=== PATIENT | female | born 1955 | race Caucasian/White ===

== ENCOUNTER 2025-04-19 12:06 | Inpatient (IN) | payer MEDICARE, OTHER, SELFPAY ==
[2025-04-18] VITALS (12 sets, daily range): BP systolic 135–156; BP diastolic 52–102; BMI 42.9
--- NOTE | 2025-04-18 11:25 | PTCARENOTE ---
Patient has severe pain in the R ankle so SCD not applied. Also large mono to the L ankle so wipe not done. Will notify
[2025-04-18] MEDS: NORMOSOL-R/PLASMALYTE-A 1000 IV (11:36)
--- NOTE | 2025-04-18 11:41 | PTCARENOTE ---
Per Anesthesia no need for SCD due to patients high pain level in ankle.
[2025-04-18] MEDS: TYLENOL 1000 MG PO (11:45)
[2025-04-18] MEDS: CELEBREX 200 MG PO (11:45)
--- NOTE | 2025-04-18 15:22 | W.PN.SURGUPD ---
Surgical Update
Surgical Update
69 yo F s/p L ankle ORIF
-Strictly NWB to both legs due to right 5th metatarsal fracture that is being treated conservatively
-Posterior splint to remain C/D/I
-Will need ancef for 24 hours
-Multi modal analgesia
-PT/OT
-Will need DC to SNF
-Follow up with myself at [facility] in 2 weeks
--- NOTE | 2025-04-18 15:33 | HPS.HSE ---
Addendum entered and electronically signed by Primo Oh MD 04/18/25 16:16:
I saw and examined the patient.
The BEEF LUGGER's note was reviewed and I agree with the note.
Comment:
69-year-old female with past medical history of primary hypertension, anxiety, morbid obesity to excess calories who was seen post surgery after undergoing left ankle open reduction internal fixation surgery. Seen postop. Was complaining of severe
pain and just received fentanyl in the PACU. States pain is improving.
General-no acute distress
HEENT neck is supple, trachea is midline
Respiratory nonlabored respiration, not tachypneic, nasal cannula oxygen noted
Cardiac regular rhythm
Abdomen nondistended obesity
Bilateral lower extremity covered in Binh wrap/cast. Able to move toes.
Neuro awake
Impression
Left ankle fracture status post ORIF
Right fifth metatarsal fracture
Primary hypertension
Anxiety
Vitamin D deficiency
Insomnia
Morbid obesity
Plan
Postop antibiotics requirement per surgery
Pain control multimodal analgesia. Bowel regimen.
Strict nonweightbearing bilateral lower extremity due to fractures per surgery
Continue home medications
Check labs
DVT prophylaxis per surgery recommends Lovenox
I spent a total of 80 minutes with the patient or on the floor. More than 50% of this time involved counseling and coordination of care.
Original Note:
Family Physician
-
Family Physician: JIAN LYN DO
Chief Complaint
-
s/p right ORIF
History of Present Illness
69 year old with PMH for HTN presented to us s/p ORIF of left ankle pain. patient fell and rolled on her left ankle. patient was noted to have right 5th metatarsal base fracture and left fibular fracture. patient underwent ORIF of left ankle. at
present, patient in pain. denied YOUNG,dizzy or syncope.denied fever, cills, chst pain, sb. denied abdominal pain,n,v,d. denied dysuria o ror hematuria.
Medical History
Past Medical History
Past Medical History: Reports Other
Additional Past Medical History:
htn
Past Surgical History: Reports Other
Additional Past Surgical History:
gastric bypass
RIGHT TKA
left TKA
Social History
Tobacco: Non-smoker
Alcohol: None
Drug: None
Family History
Family History: Not pertinent
Allergies / Home Medications
Allergies reflects when Allergies were last updated in [employer].
Home Medications with original date entered in [employer]
Allergy/Medication List:
Allergies
Allergy/AdvReac Type Severity Reaction Status Date / Time
pollen extracts Allergy SEASONAL Verified 04/18/25 11:32
ALLERGY
Home Medications
cetirizine 10 mg tablet 10 mg PO DAILY ALLERGY 01/05/22
sertraline 100 mg tablet 100 mg PO DAILY Depression 01/05/22
zolpidem 12.5 mg tablet,extended release,multiphase (Ambien CR) 10 mg PO HS PRN INSOMNIA 01/05/22
acetaminophen 325 mg tablet 325 - 650 mg PO PRN PRN PAIN 04/15/25
biotin 5,000 mcg chewable tablet 5,000 mcg PO DAILY Supplement 04/15/25
cholecalciferol (vitamin D3) 125 mcg (5,000 unit) tablet (Vitamin D3) 125 mcg PO DAILY Supplement 04/15/25
hydrochlorothiazide 25 mg tablet 25 mg PO DAILY HTN 04/15/25
lorazepam 1 mg tablet 1 mg PO PRN PRN anxiety 04/15/25
oxycodone 5 mg tablet 5 mg PO Q6H PRN pain 04/15/25
Review of Systems
-
Constitutional: Reports No Symptoms
EENT: Reports No Symptoms
Respiratory: Reports No Symptoms
Cardiac: Reports No Symptoms
Abdomen/GI: Reports No Symptoms
: Reports No Symptoms
Musculoskeletal: Reports Other (left ORIF, right LE bruised and swelling)
Skin: Reports No Symptoms
Neurological: Reports No Symptoms
Endocrine: Reports No Symptoms
Hematologic/Lymphatic: Reports No Symptoms
Psych: Reports No Symptoms
Physical Exam
Vital Signs
Vital Signs
Temp Pulse Resp BP Pulse Ox
97.0 F 89 16 156/102 94
04/18/25 11:30 04/18/25 11:30 04/18/25 11:30 04/18/25 11:30 04/18/25 11:30
Physical Exam
General: Well Developed, Well Nourished and No Apparent Distress
HEENT: NormoCephalic, Moist mucous membranes and Atraumatic
Respiratory: Clear
Cardiac: S1/S2 and Regular Rhythm; No Murmur or Rub
GI: Soft, Non Tender, Non Distended and Normal Bowel Sounds; No Organomegaly
Rectal: Deferred by Provider
Musculoskeletal: No Clubbing, No Cyanosis and Other (left LE bruising, edema, left ankle s/p ORIF)
Skin: No Rash
Neuro: Nonfocal/grossly intact
Psych: Calm
Impression/Plan
-
#s/p left ankle ORIF
#right fifth metatarsal fracture -treating conservatively
-PT/OT consulted
-podiatry following pain
-weight bearing as tolerated
-Tylenol prn for pain
-iv Ancef continued as per podiatry
-gabapentin and oxy continued
#essential HTN
-hctz continued
#anxiety
-lorazepam continued
#depression
-sertraline continued
#DVT prophylaxis
-Lovenox
#CODE status
-full code
[2025-04-18] MEDS: SUBLIMAZE 50 MCG IV ×3 (15:52→16:31)
[2025-04-18] MEDS: LOVENOX 40 MG SC (18:52)
[2025-04-18] MEDS: MORPHINE SULFATE 1 MG IV ×2 (18:53→23:08)
[2025-04-18] MEDS: ANCEF 10 IV (21:23)
[2025-04-18] MEDS: NEURONTIN 300 MG PO (21:24)
[2025-04-18] MEDS: AMBIEN 10 MG PO (23:16)
[2025-04-19] VITALS (7 sets, daily range): BP systolic 125–143; BP diastolic 55–72; PULSE 65; O2SAT 98
[2025-04-19] MEDS: TYLENOL 650 MG PO (01:40)
[2025-04-19] MEDS: ANCEF 10 IV ×2 (03:09→12:08)
[2025-04-19] MEDS: ROXICODONE 5 MG PO ×2 (03:12→08:07)
[2025-04-19 06:09] LABS: Hematocrit 37.2 % (37.0-47.0); Hemoglobin 12.5 g/dL (12.0-16.0); Mean Corp Hgb Conc. 33.6 g/dL (33.0-37.0); Mean Corpuscular Volume 97.9 fL (81.0-99.0); Platelet Count 227 10^3/uL (130-400); Red Cell Dist. Width 13.8 % (11.5-14.5)
[2025-04-19 06:38] LABS: Blood Urea Nitrogen 15 mg/dl (7-17); Calcium 9.0 mg/dl (8.4-10.2); Carbon Dioxide 30 mmol/L (22-30); Chloride 99 mmol/L (98-107); Estimated Creatinine Clearance 91 ml/min; Glucose 112 mg/dl (70-99); Potassium 4.5 mmol/L (3.5-5.1); Sodium 135 mmol/L (135-145); eGFR > 60.00
[2025-04-19] MEDS: NEURONTIN 300 MG PO ×3 (08:01→21:15)
[2025-04-19] MEDS: ORETIC 25 MG PO (08:02)
[2025-04-19] MEDS: ZOLOFT 100 MG PO (08:02)
[2025-04-19] MEDS: ROXICODONE 10 MG PO ×3 (10:08→19:40)
--- NOTE | 2025-04-19 10:22 | W.PN.UPDATE ---
Update Note
Progress Note Update
69 yo F s/p L ankle ORIF. Doing well this AM with anticipated postop pain. CFT wnl, sensation intact to pedal distributions, motor function intact to toes, calves soft supple nontender to touch
-Strictly NWB LLE, patient may be PWB to right heel in CAM for transfers only due to right 5th metatarsal fracture that is being treated conservatively
-Posterior splint to remain C/D/I
-continue postop ancef 24hrs from surgery
-Multi modal analgesia
-PT/OT
-Will need DC to SNF
-Follow up with Dr. Madden at [facility] in 2 weeks
--- NOTE | 2025-04-19 11:06 | W.PN.HOSP.TC ---
Today's Communication/Plan
-
Pain control
Bowel regimen
Case management for placement
Start Disposition planning
Assessment / Plan
Assessment / Plan
General-no acute distress
HEENT neck is supple, trachea is midline
Respiratory nonlabored respiration, not tachypneic,
Cardiac regular rhythm
Abdomen nondistended obesity
Bilateral lower extremity covered in Binh wrap/cast. Able to move toes.
Neuro awake
#s/p left ankle ORIF
#right fifth metatarsal fracture -treating conservatively
-PT/OT consulted recs SNF
-podiatry following
- Weightbearing status per surgery and recommending strict nonweightbearing to left lower extremity and partial weightbearing to right heel in CAM for transfers only
-Tylenol prn for pain
-iv Ancef continued as per podiatry
- Gabapentin started for surgery. Tramadol for moderate pain. Oxycodone for severe. Morphine for breakthrough pain only.
#essential HTN
-hctz continued. Blood pressure controlled 130/67.
#anxiety
-lorazepam continued
#depression
-sertraline continued
#Chronic bradycardia
Continue to monitor
#DVT prophylaxis
-Lovenox
#CODE status
-full code
Anticipated Discharge: Within 24 hours
Subjective/Interval History
-
Date of Service: April 19, 2025
state of Left leg pain
Objective Data
-
Labs:
Laboratory Results
04/18/25 04/19/25
17:27 05:17
WBC Cancelled 6.9
Hgb Cancelled 12.5
Hct Cancelled 37.2
Plt Count Cancelled 227
Sodium Cancelled 135
Potassium Cancelled 4.5
Chloride Cancelled 99
Carbon Dioxide Cancelled 30
BUN Cancelled 15
Creatinine Cancelled 0.7
Glucose Cancelled 112 H
Calcium Cancelled 9.0
Total Bilirubin Cancelled
AST Cancelled
ALT Cancelled
Alkaline Phosphatase Cancelled
Vital Signs:
Vital Signs
Temp Pulse Resp BP Pulse Ox
97.8 F 53 16 130/67 98
04/19/25 07:05 04/19/25 08:02 04/19/25 07:05 04/19/25 08:02 04/19/25 10:57
I&O
04/18/25 04/19/25 04/20/25
06:59 06:59 06:59
Intake Total 440 / 440 240 / 240
Output Total 400 / 400
Balance 40 / 40 240 / 240
Data Reviewed
-
Total Time Spent with Patient (in minutes): 55
[2025-04-19] MEDS: MORPHINE SULFATE 1 MG IV (12:08)
--- NOTE | 2025-04-19 13:20 | CM ---
Initial assessment completed with pt at bedside. Pts sister and niece at bedside as well.
Pt is status post L Ankle ORIF completed on 04/18/25.
Pt was switched to Inpt based on NWB and pain management. Goal is for pt to dc to SNF.
At baseline, pt lives with her 2 sisters in a split level home. There are 3ste the home to the living room/kitchen area, and there are an additional 8steps to the pts room and bathroom. Per pt and sister at bedside, pt will have stairglide installed
from main level to her room.
Additional equipment includes a RW, cane, shower chair with additional shower rails, and toilet rails.
Pt has had VN in the past, but does not recall the agency. Pt has never been placed in SNF.
Recommendation is for pt to go to SNF at dc. BELLA spoke with pt and family at bedside regarding Medicare.gov
Initial referrals were sent to [facility], and [facility]. BELLA did encourage to continue search for additional facilities in the event these do not accept.
PCP-Denae Elkins
Pharm; SUSAN Carreoneim
PLAN; SNF
[2025-04-19] MEDS: ATIVAN 1 MG PO (14:47)
[2025-04-19] MEDS: LOVENOX 40 MG SC (17:23)
[2025-04-19] MEDS: SENOKOT-S 1 TABLET PO (19:40)
[2025-04-19] MEDS: AMBIEN 10 MG PO (21:57)
[2025-04-20] MEDS: ROXICODONE 10 MG PO ×4 (03:06→17:58)
[2025-04-20] MEDS: MORPHINE SULFATE 1 MG IV ×2 (04:17→09:51)
[2025-04-20 06:51] LABS: Hematocrit 35.9 % (37.0-47.0); Hemoglobin 11.8 g/dL (12.0-16.0); Mean Corp Hgb Conc. 32.9 g/dL (33.0-37.0); Mean Corpuscular Volume 98.6 fL (81.0-99.0); Nucleated Red Blood Cells % 0 %; Platelet Count 249 10^3/uL (130-400); Red Cell Dist. Width 13.7 % (11.5-14.5)
[2025-04-20 07:17] LABS: Blood Urea Nitrogen 14 mg/dl (7-17); Calcium 8.6 mg/dl (8.4-10.2); Carbon Dioxide 32 mmol/L (22-30); Chloride 100 mmol/L (98-107); Estimated Creatinine Clearance 80 ml/min; Glucose 99 mg/dl (70-99); Potassium 3.8 mmol/L (3.5-5.1); Sodium 138 mmol/L (135-145); eGFR > 60.00
[2025-04-20 07:20] VITALS: BP 154/84
[2025-04-20] MEDS: ZOLOFT 100 MG PO (07:55)
[2025-04-20] MEDS: ORETIC 25 MG PO (07:55)
[2025-04-20] MEDS: NEURONTIN 300 MG PO ×3 (07:55→21:48)
[2025-04-20] MEDS: SENOKOT-S 1 TABLET PO ×2 (07:55→20:27)
--- NOTE | 2025-04-20 07:57 | OR.RPT ---
Operative Report
Operative Report
Operative Report
Patient: Mounika Tapia

Date of Surgery: 04/18/2025
Surgeon: Chilo Madden DPM
Assistants: Chilo Prado DPM
Anesthesia: General with regional block
Preoperative Diagnosis:
Left spiral oblique distal fibular fracture
Deltoid ligament and syndesmotic instability
Postoperative Diagnosis:
Same as preoperative
Procedure:
Open reduction and internal fixation (ORIF) of left distal fibular fracture CPT 04101
Syndesmotic stabilization CPT 26418
Materials: 2-0 vicryl, 3-0 vicryl, 3-0 prolene
Implants:
salgomed anatomical distal fibular plate
Locking and non-locking 3.5mm screws (salgomed)
Two Arthrex TightRopes
Hemostasis: Thigh tourniquet at 325mmHg remained inflated for the entirety of the procedure
Estimated Blood Loss: Minimal (<50 mL)
Complications: None
Indications for Procedure:
The patient is a 69-year-old female who sustained a left ankle injury that happened approximately 1 week ago consistent with a spiral oblique distal fibular fracture. Preoperative imaging demonstrated widening of the medial clear space and evidence
of deltoid and syndesmotic instability. Given the fracture pattern and instability, surgical fixation with plate and syndesmotic stabilization was indicated to restore anatomic alignment and stability, and to decrease the risk of post-traumatic
arthritis. Risks, benefits, and alternatives were discussed, and informed consent was obtained.
Procedure in Detail:
The patient was brought to the operating room, placed supine on the operating table, and a well-padded thigh tourniquet was applied to the left lower extremity. Following induction of general anesthesia, the left lower extremity was prepped and
draped in the usual sterile fashion. A surgical timeout was performed. The extremity was exsanguinated, and the tourniquet was inflated.
A longitudinal incision was made along the posterolateral aspect of the distal fibula centered over the fracture site. Sharp and blunt dissection was carried down through the subcutaneous tissue with care taken to protect the superficial peroneal
nerve branches. The fracture site was identified, and hematoma and interposed tissue were debrided.
The spiral oblique fracture was anatomically reduced using reduction clamps, and provisional fixation was achieved with a pointed reduction clamp and K-wires. An anatomic reduction was confirmed both visually and under fluoroscopy. A 3.5mm
interfragmentary screw was then placed across the fracture utilizing standard AO technique.
Attention was turned to plate fixation to protect the interfragmentary screw. A [facility] anatomic distal fibular plate was selected and positioned along the lateral fibula. The plate was secured proximally and distally using a combination of
non-locking cortical screws and locking screws for optimal fixation and stability. Fluoroscopy confirmed satisfactory alignment of the fibula, hindu of the ankle mortise, and appropriate hardware placement.
Stress fluoroscopy was performed, demonstrating persistent widening of the medial clear space and syndesmotic instability. Given these findings, syndesmotic fixation was performed. Two Arthrex TightRope devices were placed across the distal
tibiofibular joint in standard fashion, one just above the level of the plafond and the second slightly proximal to the first, ensuring divergent orientation. The TightRopes were tensioned sequentially under fluoroscopy until anatomic reduction and
stability of the syndesmosis were restored. Final fluoroscopy demonstrated anatomic reduction of the fibula within the tibial incisura, symmetric medial clear space, stable mortise, and appropriate hardware placement.
The wound was thoroughly irrigated with copious sterile saline. Layered closure was performed with 2-0 Vicryl for deep tissues, 3-0 vicryl for subcutaneous tissue, and 3-0 prolene in a horizontal mattress fashion for skin. A sterile dressing was
applied, followed by a well-padded posterior splint. The tourniquet was deflated, and brisk capillary refill was noted to the toes.
The patient tolerated the procedure and anesthesia well without complications and was transferred to the recovery unit in stable condition. Patient has a concurrent right 5th metatarsal fracture which will be treated conservatively. She will be
non-weightbearing to left lower extremity, and weight-bearing for transfers only to her right lower extremity in a CAM boot. Due to these limitations, she will be post-operatively admitted for pain control and retirement facility placement. She
will follow up in the office in 2 weeks.
--- NOTE | 2025-04-20 11:07 | W.PN.HOSP.TC ---
Today's Communication/Plan
-
Continue with pain control
Continue bowel regimen
Await placement to SNF
Continue Lovenox for DVT prophylaxis
Assessment / Plan
Assessment / Plan
General-no acute distress
HEENT neck is supple, trachea is midline
Respiratory nonlabored respiration, not tachypneic,
Cardiac regular rhythm
Abdomen nondistended obesity
Musculoskeletal right foot bruising noted. Mild swelling noted. Left lower extremity in cast and Binh wrap. Sensation intact to toes visible. Warm to touch toes.
Neuro awake
#s/p left ankle ORIF
#right fifth metatarsal fracture -treating conservatively
-PT/OT consulted recs SNF
-podiatry following
- Weightbearing status per surgery and recommending strict nonweightbearing to left lower extremity and partial weightbearing to right heel in CAM for transfers only
- Pain control.
- Status post postop antibiotic course per surgery. Completed.
- Gabapentin started for surgery. Tramadol for moderate pain. Oxycodone for severe. Morphine for breakthrough pain only. Adjust as necessary.
#essential HTN
-hctz continued.
#anxiety
-lorazepam continued
#depression
-sertraline continued
#Chronic bradycardia
Continue to monitor
#Morbid obesity
#DVT prophylaxis
-Lovenox
#CODE status
-full code
Anticipated Discharge: > 48 hours
Subjective/Interval History
-
Date of Service: April 20, 2025
States of left leg pain
Still passing flatulence but no bowel movement today.
Objective Data
-
Labs:
Laboratory Results
04/20/25
06:15
WBC 5.2
Hgb 11.8 L
Hct 35.9 L
Plt Count 249
Sodium 138
Potassium 3.8
Chloride 100
Carbon Dioxide 32 H
BUN 14
Creatinine 0.8
Glucose 99
Calcium 8.6
Vital Signs:
Vital Signs
Temp Pulse Resp BP Pulse Ox
98.4 F 71 16 154/84 98
04/20/25 07:20 04/20/25 07:55 04/20/25 07:20 04/20/25 07:55 04/20/25 07:20
I&O
04/19/25 04/20/25 04/21/25
06:59 06:59 06:59
Intake Total 440 / 440 1679
Output Total 400 / 400
Balance 40 / 40 1679
[2025-04-20] MEDS: ATIVAN 1 MG PO (15:40)
[2025-04-20] MEDS: LOVENOX 40 MG SC (17:59)
[2025-04-20] MEDS: AMBIEN 10 MG PO (21:47)
[2025-04-20] MEDS: MIRALAX 17 GRAMS PO (21:48)
[2025-04-20 23:04] VITALS: BP 122/61
[2025-04-21] MEDS: ROXICODONE 10 MG PO ×4 (04:42→21:07)
[2025-04-21] MEDS: ATIVAN 1 MG PO (05:43)
[2025-04-21 06:29] LABS: Hematocrit 37.8 % (37.0-47.0); Hemoglobin 12.7 g/dL (12.0-16.0); Mean Corp Hgb Conc. 33.6 g/dL (33.0-37.0); Mean Corpuscular Volume 100.5 fL (81.0-99.0); Nucleated Red Blood Cells % 0 %; Platelet Count 272 10^3/uL (130-400); Red Cell Dist. Width 13.8 % (11.5-14.5)
[2025-04-21 06:47] LABS: Blood Urea Nitrogen 13 mg/dl (7-17); Calcium 9.0 mg/dl (8.4-10.2); Carbon Dioxide 34 mmol/L (22-30); Chloride 98 mmol/L (98-107); Estimated Creatinine Clearance 107 ml/min; Glucose 104 mg/dl (70-99); Potassium 4.2 mmol/L (3.5-5.1); Sodium 137 mmol/L (135-145); eGFR > 60.00
[2025-04-21 07:05] VITALS: BP 149/81
[2025-04-21] MEDS: ZOLOFT 100 MG PO (08:15)
[2025-04-21] MEDS: ORETIC 25 MG PO (08:15)
[2025-04-21] MEDS: NEURONTIN 300 MG PO ×3 (08:15→21:07)
[2025-04-21] MEDS: SENOKOT-S 1 TABLET PO ×2 (08:15→21:08)
--- NOTE | 2025-04-21 09:57 | CM ---
Chart reviewed. Plan is for patient to d/c to SNF when medically stable. CM spoke w/ patient to confirm facilities that she discussed w/ CM yesterday. Patient confirmed [facility] and [facility]. Referrals
placed in [facility] for review.
Plan: SNF
[2025-04-21 15:34] VITALS: BP 153/68; PULSE 66; O2SAT 99
[2025-04-21 16:04] VITALS: BP 153/68
--- NOTE | 2025-04-21 16:48 | W.PN.HOSP.TC ---
Today's Communication/Plan
-
Physical therapy.
SNF placement
Assessment / Plan
Assessment / Plan
#s/p left ankle ORIF
#right fifth metatarsal fracture -treating conservatively
-PT/OT consulted recs SNF
-podiatry following
- Weightbearing as per surgery
- Pain control.
- Status post postop antibiotic course per surgery. Completed.
- Gabapentin started for surgery. Tramadol for moderate pain. Oxycodone for severe. Morphine for breakthrough pain only. Adjust as necessary.
#essential HTN
-hctz continued.
#anxiety
-lorazepam continued
#depression
-sertraline continued
#Chronic bradycardia
Continue to monitor
#Morbid obesity
#DVT prophylaxis
-Lovenox
#CODE status
-full code
Anticipated Discharge: 24 - 48 hours
Subjective/Interval History
-
Date of Service: April 21, 2025
Objective Data
-
Labs:
Laboratory Results
04/21/25
05:44
WBC 4.5 L
Hgb 12.7
Hct 37.8
Plt Count 272
Sodium 137
Potassium 4.2
Chloride 98
Carbon Dioxide 34 H
BUN 13
Creatinine 0.6
Glucose 104 H
Calcium 9.0
Vital Signs:
Vital Signs
Temp Pulse Resp BP Pulse Ox
98 F 66 16 153/68 97
04/21/25 16:04 04/21/25 16:04 04/21/25 16:04 04/21/25 16:04 04/21/25 16:04
I&O
04/20/25 04/21/25 04/22/25
06:59 06:59 06:59
Intake Total 1680 / 1680 480 / 480 800 / 800
Balance 1680 / 1680 480 / 480 800 / 800
Physical Exam
-
General: Well Developed and No Apparent Distress
HEENT: Normocephalic, Atraumatic and Moist Mucous Membranes
Respiratory: Clear to Auscultation
Cardiac: Regular Rhythm and S1/S2; Negative Murmur, Rub or Gallop
GI: Soft, Nontender, Nondistended and Normal Bowel Sounds; Negative Organomegaly
Rectal: Deferred by Provider
Musculoskeletal: No Clubbing, No Cyanosis and No Edema
Skin: Negative Rash
Neuro: Nonfocal/Grossly Intact
[2025-04-21] MEDS: LOVENOX 40 MG SC (17:37)
[2025-04-21] MEDS: MIRALAX PO (21:08)
[2025-04-21] MEDS: AMBIEN 10 MG PO (22:21)
[2025-04-21 23:00] VITALS: BP 118/59
[2025-04-22] MEDS: ROXICODONE 10 MG PO ×3 (03:48→14:19)
[2025-04-22] MEDS: SENOKOT-S 1 TABLET PO (07:50)
[2025-04-22] MEDS: ZOLOFT 100 MG PO (07:50)
[2025-04-22] MEDS: NEURONTIN 300 MG PO ×2 (07:50→15:33)
[2025-04-22 08:00] VITALS: BP 133/81
[2025-04-22] MEDS: ORETIC 25 MG PO (08:41)
[2025-04-22] MEDS: ATIVAN 1 MG PO (12:21)
--- NOTE | 2025-04-22 12:59 | W.DS.TRANS ---
DC Summary - [employer]
-
Discharge Instructions:
Sleep Apnea Risk High
Discharge Diagnosis/Procedures Left ankle fracture status post ORIF.
Right fifth metatarsal fracture has been treated
conservatively.
Chronic medical conditions including:
Essential hypertension, anxiety, depression,
Diet Regular
Instructions:
Stand-Alone Forms:
Changes to Home Medications: Yes
Discharge Medications:
DC Medications w/original date entered in [employer]
sertraline 100 mg tablet 100 mg PO DAILY Depression 01/05/22
acetaminophen 325 mg tablet 325 - 650 mg PO PRN PRN PAIN 04/15/25
cholecalciferol (vitamin D3) 125 mcg (5,000 unit) tablet (Vitamin D3) 125 mcg PO DAILY Supplement 04/15/25
hydrochlorothiazide 25 mg tablet 25 mg PO DAILY HTN 04/15/25
aspirin 81 mg capsule 81 mg PO DAILY #30 caps 04/22/25
gabapentin 300 mg capsule 300 mg PO TID #30 caps 04/22/25
lorazepam 1 mg tablet 1 mg PO PRN PRN anxiety #10 tabs 04/22/25
oxycodone 10 mg tablet 10 mg PO Q4HPRN PRN severe pain #15 tabs 04/22/25
polyethylene glycol 3350 17 gram oral powder packet 17 g PO HS #30 ea 04/22/25
zolpidem 12.5 mg tablet,extended release,multiphase (Ambien CR) 10 mg (0.8 x 12.5 mg) PO HS PRN INSOMNIA #10 tabs 04/22/25
Home Medication Changes
ASA for DVT prophylaxis
Pending Results: No
--- NOTE | 2025-04-22 13:30 | CM ---
Addendum entered by Ivon Moya 04/22/25 14:38:
Transport scheduled for 4:45PM. Admissions notified.
Original Note:
Patient has been medically cleared for discharge to [facility] for fci and rehab services. Ambulance transport to be scheduled. Awaiting transport time. IMM completed.
Nurse to Nurse Report #: [phone]
Fax #: [phone]
[2025-04-22 15:37] VITALS: BP 133/71
== END 2025-04-22 17:20 | DRG 493 ==
LOC: 2 SOUTH 12:06
PROVIDERS: Registered Nurse; Student in an Organized Health Care Education/Training Program; ADMITTING PHYSICIAN Hospitalist; ATTENDING PHYSICIAN Internal Medicine; FAMILY PHYSICIAN Student in an Organized Health Care Education/Training Program
PROC: 0QSK04Z Reposition Left Fibula with Internal Fixation Device, Open Approach (ICD-10-PCS; 2025-04-20)
DX: S82.832A Other fracture of upper and lower end of left fibula, initial encounter for closed fracture (principal); M80.062A Age-related osteoporosis with current pathological fracture, left lower leg, initial encounter for fracture; I10 Essential (primary) hypertension; F41.9 Anxiety disorder, unspecified; F32.A Depression, unspecified; S92.351A Displaced fracture of fifth metatarsal bone, right foot, initial encounter for closed fracture; W19.XXXA Unspecified fall, initial encounter; E55.9 Vitamin D deficiency, unspecified; G47.00 Insomnia, unspecified; E66.01 Morbid (severe) obesity due to excess calories; Z96.653 Presence of artificial knee joint, bilateral; Z98.84 Bariatric surgery status
CPT/HCPCS: 73610; 76000; 80048; 85025; 85027; 97162; 97167; 97530; 97535